=== PATIENT | male | born 1965 | race Caucasian/White ===

== ENCOUNTER 2018-12-26 16:58 | Emergency (ER) | payer SELFPAY ==
[2018-12-26 17:02] VITALS: BP 146/90; PULSE 90; RESP 18; TEMP 36.9; O2SAT 98; BMI 25.8
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
[2018-12-26 18:15] VITALS: RESP 16
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
[2018-12-26] MEDS: oxyCODONE 5 MG Tablet 10 MG PO (18:45)
[2018-12-26] MEDS: Ondansetron ODT 4 MG Tablet PO (18:46)
[2018-12-26 19:19] VITALS: RESP 16
== END 2018-12-26 19:19 | disposition home or self-care (01) ==
LOC: ED 19:01
PROVIDERS: Emergency Provider Emergency Medicine
DX: M54.5 Low back pain (principal); V19.88XA Pedal cyclist (driver) (passenger) injured in other specified transport accidents, initial encounter; Y93.55 Activity, bike riding; Y92.838 Other recreation area as the place of occurrence of the external cause; Y99.9 Unspecified external cause status
CPT/HCPCS: 72072; 72100; 99283

== ENCOUNTER → 2022-12-09 | Outpatient (CLI) | payer SELFPAY ==
--- NOTE | 2022-12-09 08:28 | CT_ITS ---
STUDY: CT FACIAL BONES WITHOUT CONTRAST REASON FOR EXAM: Male, 57 years old. CHRONIC SINUSITIS RADIATION DOSAGE (If Supplied By Facility): CTDIvol = ( 28.14 ) mGy, DLP = ( 753.23 ) mGycm TECHNIQUE: The patient was scanned in a multi detector CT scanner. Sagittal and coronal images were reconstructed. Individualized dose optimization techniques were used for this CT. COMPARISON: None. FINDINGS: Normal soft tissue structures. Normal orbital fritz and orbital contents. Normal nasal bones and anterior nasal spine. Normal facial bones. There is no demonstrated fracture. There is opacification of the ethmoid sinuses bilaterally with thinning of the bony septations within the sinus. Opacification of the right maxillary sinus with mucosal thickening of the left maxillary sinus. Partial opacification of the sphenoid sinuses. Partial opacification of the frontal sinus. Obliteration of the ostiomeatal complexes bilaterally due to soft tissue prominence. Soft tissue prominence in the nasal airways suggestive of polyposis. CT/Sinus/Facial Bone IMPRESSION: Pansinusitis. Findings suggestive of nasal polyposis. Electronically Signed: Emigdio Jacobson MD at 12:39 EDT ,
== END | disposition home or self-care (01) ==
PROVIDERS: Referring Provider Otolaryngology; Visit Provider Otolaryngology
DX: J32.9 Chronic sinusitis, unspecified (principal)
CPT/HCPCS: 70486